=== PATIENT | female | born 2000 | race Caucasian/White ===

== ENCOUNTER 2018-06-13 01:03 | Emergency (ER) | payer OTHER ==
[~2018-06-13] VITALS: Ht 167.6 cm; Wt 102.7 kg
[2018-06-13 01:17] VITALS: BP 134/86
--- NOTE | 2018-06-13 02:23 | NUR ---
TO ER BED 12 W OUT ASSIST.
--- NOTE | 2018-06-13 02:43 | NUR ---
PT BIB FAMILY C/O LEFT KNEE PAIN. PT HEARD "POP" WHILE GETTING OUT OF SHOWER AND TWISTED. PT REPORTS SHARP/TIGHT PAIN AT 7/10 THAT INCREASES WITH KNEE MOVEMENT. NO VISIBLE EDEMA, ERYTHEMA OR DEFORMITIES. [facility] +. ER MD TO SEE PT. WILL CONTINUE TO MONITOR. MED HX: ASTHMA
--- NOTE | 2018-06-13 03:37 | NUR ---
PT GIVEN INSTRUCTION ON PROPER USE OF CRUTCHES. CRUTCHES FITTED TO PT HEIGHT WITH 2 INCH GAP BETWEEN TOP OF CRUTCH AND PT ARMPIT, AND HANDLES LOCATED AT PT WRIST. PT GIVEN INSTRUCTION ON SITTING TO STANDING, WALKING AND TURNING. PT DEMONSTRATED SAFE AND PROPER USE FOR APPROXIMATELY 40 FEET. PT STATED SHE FELT COMFORTABLE WITH USE
--- NOTE | 2018-06-13 03:37 | NUR ---
EMT BANDAR PUTING KNEE EMOBILIZER ON PT AND TEACHING PT HOW TO USE CRUTCHES AT THIS TIME.
--- NOTE | 2018-06-13 03:37 | NUR ---
KNEE IMMOBILIZER ATTACHED TO PT L KNEE. +CSM
[2018-06-13 03:45] VITALS: BP 121/79
== END 2018-06-13 03:45 | disposition home or self-care (01) ==
LOC: MED 01:03
DX: S86.812A Strain of other muscle(s) and tendon(s) at lower leg level, left leg, initial encounter (principal); W18.30XA Fall on same level, unspecified, initial encounter; Y93.89 Activity, other specified; Y92.89 Other specified places as the place of occurrence of the external cause; Y99.8 Other external cause status
CPT/HCPCS: 73562; 81025; 99283